=== PATIENT | female | born 1995 | race Asian ===

== ENCOUNTER 2020-08-09 23:33 | Emergency (ER) | payer OTHER ==
[~2020-08-09] VITALS: Ht 152.4 cm; Wt 42.0 kg
[2020-08-10 00:07] LABS: MICROSCOPIC NOT IND
[2020-08-10 00:11] LABS: BASOPHILS % (AUTO) 1 % (0-1); EOSINOPHILS % (AUTO) 1 % (1-7); LYMPHOCYTES % (AUTO) 31 % (22-44); MEAN CORPUSCULAR HEMOGLOBIN 22.5 pg (27.0-34.8); MEAN CORPUSCULAR HGB CONC 31.1 g/dL (32.4-35.8); MEAN PLATELET VOLUME 7.1 fL (7.4-10.4); MONOCYTES % (AUTO) 5 % (2-9); NEUTROPHILS % (AUTO) 63 % (42-75); PLATELET COUNT 252 x10^3/uL (130-400); RED BLOOD COUNT 5.36 x10^6/uL (3.82-5.3); RED CELL DISTRIBUTION WIDTH 14.3 % (9.6-15.2)
[2020-08-10 00:22] LABS: ALBUMIN 4.1 g/dL (3.4-5.0); ANION GAP 9 mmol/L (5-15); CALCIUM 9.2 mg/dL (8.5-10.1); CHLORIDE 104 mmol/L (98-107); CREATININE 0.73 mg/dL (0.55-1.02)
[2020-08-10 01:11] VITALS: BP 114/76
--- NOTE | 2020-08-10 01:56 | NUR ---
PT GIVEN WATER AND ORANGE JUICE, DRANK 740 MLS OF BOTH FLUIDS.
== END 2020-08-10 02:08 | disposition home or self-care (01) ==
LOC: ED 23:35
DX: R55 Syncope and collapse (principal); R42 Dizziness and giddiness; R94.31 Abnormal electrocardiogram [ECG] [EKG]
CPT/HCPCS: 36415; 80048; 81003; 82040; 84703; 85025; 93005; 99284